=== PATIENT | female | born 2005 | race Caucasian/White ===

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

== ENCOUNTER 2024-11-16 13:29 | Emergency (ER) | payer SELFPAY ==
[2024-11-16] MEDS: Benzocaine 20% Topical Spray UD MUCMEM ONE (14:41)
[2024-11-16] MEDS: Lidocaine 2% Viscous Solution 15 ML UD PO ONE (14:41)
== END 2024-11-16 14:45 | disposition home or self-care (01) ==
LOC: MW.ED 13:29
DX: S02.5XXA Fracture of tooth (traumatic), initial encounter for closed fracture (principal); Z75.8 Other problems related to medical facilities and other health care; Z79.899 Other long term (current) drug therapy; X58.XXXA Exposure to other specified factors, initial encounter; Y93.89 Activity, other specified
CPT/HCPCS: 99282; A9270; 99283

== ENCOUNTER 2025-01-18 00:53 | Emergency (ER) | payer MEDICAID ==
[2025-01-18] MEDS ORDERED: Sodium Chloride 0.9% 20 ML SDV IV PRN (00:56)
[2025-01-18] MEDS: Sodium Chloride 0.9% 1,000 ML IV ONE (01:08)
[2025-01-18] MEDS: Ondansetron 4 MG/2 ML SDV IVPUSH ONE (01:09)
[2025-01-18] MEDS: Sodium Chloride 0.9% 10 ML Syringe FLUSH PRN (01:09)
[2025-01-18] MEDS: Sodium Chloride 0.9% 2.5 ML Syringe FLUSH PRN (01:09)
[2025-01-18 01:14] LABS: BASOPHILS ABSOLUTE AUTO 0.08 K/uL (0.00-0.20); BASOPHILS PERCENT AUTO 0.9 % (0.0-1.0); EOSINOPHILS ABSOLUTE AUTO 0.06 K/uL (0.00-0.45); EOSINOPHILS PERCENT AUTO 0.7 % (0.0-6.0); HEMATOCRIT 41.6 % (37.0-47.0); HEMOGLOBIN 14.4 g/dL (12.0-16.0); IMMATURE GRAN ABSOLUTE AUTO 0.01 K/uL (0.00-0.05); IMMATURE GRAN PERCENT AUTO 0.1 % (0.0-0.4); LYMPHOCYTES ABSOLUTE AUTO 2.42 K/uL (1.00-4.80); MEAN CORPUSCULAR HEMOGLOBIN 29.4 pg (28.0-32.0); MEAN CORPUSCULAR HGB CONC 34.6 g/dL (32.0-36.0); MEAN CORPUSCULAR VOLUME 84.9 fL (83.0-99.0); MEAN PLATELET VOLUME 9.5 fL (9.4-12.3); MONOCYTES ABSOLUTE AUTO 0.61 K/uL (0.00-0.80); MONOCYTES PERCENT AUTO 6.8 % (0.0-8.0); NEUTROPHILS ABSOLUTE AUTO 5.77 K/uL (1.80-7.70); NEUTROPHILS PERCENT AUTO 64.5 % (41.0-71.0); PLATELET COUNT,PLT 312 K/uL (150-400); WHITE BLOOD CELL COUNT,WBC 8.95 K/uL (3.9-11.3)
[2025-01-18 02:07] LABS: A/G RATIO 1.2 (0.9-1.6); ALANINE AMINOTRANSFERASE,ALT 21 IU/L (14-63); ALBUMIN 4.3 g/dL (3.4-5.0); ALKALINE PHOSPHATASE 97 U/L (46-116); ASPARTATE AMNIOTRANSFERASE,AST 17 IU/L (15-37); BILIRUBIN TOTAL 0.2 mg/dL (0.2-1.0); BLOOD UREA NITROGEN,BUN 7 mg/dL (7.0-18.0); CALCIUM 8.8 mg/dL (8.5-10.1); CARBON DIOXIDE,CO2 21.1 mmol/L (21.0-32.0); CHLORIDE,CL 107 mmol/L (98-107); CREATININE 0.6 mg/dL (0.6-1.0); ETHANOL BLOOD MEDICAL 244 mg/dL; GLUCOSE RANDOM 128 mg/dL (74-106); LIPASE 66 U/L (16-77); POTASSIUM,K 3.7 mmol/L (3.5-5.1); SODIUM,NA 142 mmol/L (136-145)
[2025-01-18 02:16] LABS: ESTIMATED GFR 131 mL/min (>60)
== END 2025-01-18 03:40 | disposition home or self-care (01) ==
LOC: MW.ED 00:53
DX: F10.129 Alcohol abuse with intoxication, unspecified (principal); R11.2 Nausea with vomiting, unspecified; Z79.899 Other long term (current) drug therapy; Y90.8 Blood alcohol level of 240 mg/100 ml or more
CPT/HCPCS: 36415; 80053; 80307; 83690; 84703; 85025; 96361; 96374; 99284; J2405; J7030; 99283